=== PATIENT | male | born 1980 | race African-American/Black ===

== ENCOUNTER 2017-08-27 23:50 | Emergency (ER) | payer BC ==
[2017-08-27 23:56] VITALS: BP 165/93; BMI 45.4
--- NOTE | 2017-08-28 00:25 | DR.GENAD ---
HPI - PCP Primary Care Physician: ashley - HPI Comment HPI Comment: HISTORY BELOW. - Complaint/Symptoms Chief Complaint Doctors Comments: COUGH TIMES 2 WEEKS TREATED OUT PATIENT. CONTINUE COUGHING AND FEELING SOB. TONIGHT WORSE. NOT TAKING MED CURRENTLY. NO FEVER. COUGH SLIGHTLY PRODUCTIVE, YELLOW SPUTUM. Chief Complaint:: non stop coughing for the last 2 weeks. seen given augmentin, steriod pack and nasal spray. taken all of meds, no better. - Nurses notes reviewed Nurses Notes Review: Yes - Source History Provided: Patient - Mode of Arrival Mode of Arrival: Ambulatory - Timing Onset of Chief Complaint: 08/13/17 Came on: Gradually - Duration Duration: Constant Duration: Weeks - Severity Severity: Moderate PMH - PMH Past Medical History: Yes Past Medical History: Hypertension, Kidney Stones Past Surgical History: Yes Surgical History: Ortho Surgery - Family History History of Family Medical Conditions: Yes Family Medical History: Hypertension - Social History Does patient currently use any type of tobacco product: No Have you used tobacco products in the last 12 months: No Type of Tobacco Use: None Alcohol Use: None Do you use any recreational Drugs:: No Lives With: Family Lives Where: Home - infectious screening Have you traveled outside the country in the last 6 months?: No Isolation: Standard ROS - Review of Systems Constitutional: No Symptoms Reported Eyes: No Symptoms Reported ENTM: No Symptoms Reported Respiratoy: Productive Cough, Short of Breath Cardiovascular: Edema Gastrointestinal/Abdominal: No Symptoms Reported Genitourinary: No Symptoms Reported Neurological: No Symptoms Reported Musculoskeletal: No Symptoms Reported Integumentary: No Symptoms Reported Hematologic/Lymphatic: No Symptoms Reported Endocrine: No Symptoms Reported All Other Systems: Reviewed and Negative PE - Vital Signs Vitals: Temperature 98.3 F Pulse Rate 91 Respiratory Rate 20 Blood Pressure [Left Arm] 189/96 Blood Pressure 165/93 O2 Sat by Pulse Oximetry 95 - General Limitations: No Limitations General Appearance: Alert - Head Head Exam: Normal Inspection - Eyes Eye exam: Normal Appearance - ENT ENT Exam: Normal External Ear Exam External Ear Exam: Normal External Inspection TM/Canal Exam: Bilateral Normal Mouth Exam: Normal Inspection - Neck Neck Exam: Trachea Midline - Chest Chest Inspection: Symmetric Chest Wall Rise - Respiratory Respiratory Exam: Normal Lung Sounds Bilat Respiratory Exam: Bilateral Clear to Auscultation - Cardiovascular Cardiovascular Exam: Regular Rate, Normal Rhythm, Normal Heart Sounds - Abdominal Exam Abdominal Exam: Normal Bowel Sounds, Soft. negative: Tenderness - Extremities Extremities Exam: Edema - Back Back Exam: Normal Inspection - Neurologic Neurological Exam: Alert, Oriented X3 - Psychiatric Psychiatric Exam: Normal Affect, Normal Mood - Skin Skin Exam: Normal Color MDM - Additional Information Additional Information Obtained From: Family - Differential Diagnosis Differential Diagnosis: COUGH, CHEST PAIN, SOB, PNEUMONIA, BRONCHITIS. Course - Treatment Treatment: SEE ORDERS. - Education/Counseling Education/Counseling: Patient, Family, Education Educated On: Diagnosis, Needs for Follow Up ROR - Labs Reviewed Laboratory Results Reviewed?: Yes Result Diagrams: 08/28/17 00:40 08/28/17 00:40 Laboratory: WBC 8.3 X10^3/uL (3.6-10.0) 08/28/17 00:40 RBC 5.53 X10^6/uL (4.7-6.0) 08/28/17 00:40 Hgb 13.8 g/dL (13.5-18.0) 08/28/17 00:40 Hct 41.8 % (42.0-54.0) L 08/28/17 00:40 MCV 75.5 fL (80.0-100.0) L 08/28/17 00:40 MCH 25.0 pg (27.0-34.0) L 08/28/17 00:40 MCHC 33.1 g/dL (33.0-35.0) 08/28/17 00:40 RDW 16.0 % (11.6-16.5) 08/28/17 00:40 Plt Count 306 X10^3/uL (150.0-450.0) 08/28/17 00:40 Plt Count Comment Adequate (ADEQUATE) 08/28/17 00:40 MPV 7.7 fL (7.4-11.0) 08/28/17 00:40 Neut % (Auto) 57.1 % (42.0-75.0) 08/28/17 00:40 Lymph % (Auto) 22.0 % (21.0-51.0) 08/28/17 00:40 [place] % (Auto) 16.1 % (0.0-13.0) H 08/28/17 00:40 Eos % (Auto) 3.9 % (0.9-2.9) H 08/28/17 00:40 Baso % (Auto) 0.9 % (0.2-1.0) 08/28/17 00:40 Neut # (Auto) 4.7 x10^3/uL (2.2-4.8) 08/28/17 00:40 Lymph # (Auto) 1.8 X10^3/uL (1.3-2.9) 08/28/17 00:40 [place] # (Auto) 1.3 x10^3/uL (0.3-0.8) H 08/28/17 00:40 Eos # (Auto) 0.3 x10^3/uL (0.0-0.2) H 08/28/17 00:40 Baso # (Auto) 0.1 X10^3/uL (0.0-0.1) 08/28/17 00:40 Absolute Nucleated RBC 0.0 /100WBC 08/28/17 00:40 Plt Morphology Comment Normal (NORMAL) 08/28/17 00:40 RBC Morphology Normal (NORMAL) 08/28/17 00:40 Sodium 136 mmol/L (136-145) 08/28/17 00:40 Corrected Sodium 136 mmol/L (136-145) 08/28/17 00:40 Potassium 4.2 mmol/L (3.5-5.1) 08/28/17 00:40 Chloride 102 mmol/L (98-107) 08/28/17 00:40 Carbon Dioxide 26.3 mmol/L (21-32) 08/28/17 00:40 BUN 20 mg/dL (7-18) H 08/28/17 00:40 Creatinine 1.24 mg/dL (0.70-1.30) 08/28/17 00:40 Est GFR (MDRD) Af Amer > 60 (>60) 08/28/17 00:40 Est GFR (MDRD) Non-Af > 60 (>60) 08/28/17 00:40 Glucose 111 mg/dL (65-99) H 18 00:40 Calcium 8.8 mg/dL (8.5-10.1) 041818 00:40 Corrected Calcium TNP 08/28/17 00:40 Total Bilirubin 0.20 mg/dL (0.2-1.0) 08/28/17 00:40 AST 19 Units/L (15-37) 08/28/17 00:40 ALT 28 Units/L (12-78) 08/28/17 00:40 Alkaline Phosphatase 116 Units/L (46-116) 08/28/17 00:40 Total Protein 9.1 g/dL (6.4-8.2) H 08/28/17 00:40 Albumin 3.7 g/dL (3.4-5.0) 08/28/17 00:40 Globulin 5.4 g/dL (2.5-4.5) H 08/28/17 00:40 Albumin/Globulin Ratio 0.7 Ratio (1.1-2.1) L 08/28/17 00:40 - XRAY XRAY Interpreted by: Radiologist (REPORT DISCUSS WITH PATIENT.) - Diagnosis Discharge Problem: Bronchitis - Discharge Plan Condition: Stable Prescriptions: Benzonatate [TESSALON PERLES *] 200 mg PO TID PRN #30 cap PRN Reason: Cough Ibuprofen [MOTRIN TAB 800 MG *] 800 mg PO Q8H PRN #30 tab PRN Reason: Pain/Inflammation - Follow ups/Referrals Follow ups/Referrals: NFD,None [Primary Care Provider] - 1 day - Instructions Instructions: Chronic Bronchitis Additional Instructions: RETURN TO ED IF WORSE.
--- NOTE | 2017-08-28 01:08 | RAD ---
Chest PA and lateral Indication: Cough Comparison: 05/06/2015 Findings: There is no pneumothorax or effusion. There is no consolidation. Heart size is within aida l limits. Impression: No acute chest process or change from the prior. Reported By:
[2017-08-28 01:31] LABS: HEMATOCRIT 41.8 % (42.0-54.0); HEMOGLOBIN 13.8 g/dL (13.5-18.0); MEAN CORPUSCULAR HGB CONC 33.1 g/dL (33.0-35.0); MEAN CORPUSCULAR VOLUME 75.5 fL (80.0-100.0); MEAN PLATELET VOLUME 7.7 fL (7.4-11.0); PLATELET COUNT 306 X10^3/uL (150.0-450.0); RED BLOOD COUNT 5.53 X10^6/uL (4.7-6.0); WHITE BLOOD COUNT 8.3 X10^3/uL (3.6-10.0)
[2017-08-28 01:32] LABS: BASOPHILS # (AUTO) 0.1 X10^3/uL (0.0-0.1); BASOPHILS % (AUTO) 0.9 % (0.2-1.0); EOSINOPHILS # (AUTO) 0.3 x10^3/uL (0.0-0.2); EOSINOPHILS % (AUTO) 3.9 % (0.9-2.9); LYMPHOCYTES # (AUTO) 1.8 X10^3/uL (1.3-2.9); MONOCYTES # (AUTO) 1.3 x10^3/uL (0.3-0.8); MONOCYTES % (AUTO) 16.1 % (0.0-13.0); NEUTROPHILS # (AUTO) 4.7 x10^3/uL (2.2-4.8); NEUTROPHILS % (AUTO) 57.1 % (42.0-75.0); PLATELET MORPHOLOGY COMMENT NORMAL (NORMAL)
[2017-08-28 01:34] LABS: ALANINE AMINOTRANSFERASE 28 Units/L (12-78); ALBUMIN 3.7 g/dL (3.4-5.0); ALKALINE PHOSPHATASE 116 Units/L (46-116); ASPARTATE AMINO TRANSFERASE 19 Units/L (15-37); BLOOD UREA NITROGEN 20 mg/dL (7-18); CALCIUM 8.8 mg/dL (8.5-10.1); CARBON DIOXIDE 26.3 mmol/L (21-32); CHLORIDE 102 mmol/L (98-107); COR NA(FOR HYPERGLY) 136 mmol/L (136-145); CREATININE 1.24 mg/dL (0.70-1.30); SODIUM 136 mmol/L (136-145); TOTAL PROTEIN 9.1 g/dL (6.4-8.2); eGFR BLACK RACES > 60 (>60); eGFR NON BLACK RACES > 60 (>60)
[2017-08-28] MEDS ORDERED: TORADOL TAB PO ONE ×2 (02:12→02:18)
[2017-08-28] MEDS ORDERED: TESSALON PERLES PO ONE (02:13)
== END 2017-08-28 02:25 | disposition home or self-care (01) ==
LOC: ER 23:50
DX: J40 Bronchitis, not specified as acute or chronic (principal)
CPT/HCPCS: 36415; 71046; 80053; 85025; 99283; 99284

== ENCOUNTER 2017-09-05 00:51 | Emergency (ER) | payer BC ==
[2017-09-05 00:56] VITALS: BMI 45.4
--- NOTE | 2017-09-05 01:54 | RAD ---
Chest, AP portable Indication: Cough Comparison: 08/28/2017 Findings: Cardiac silhouette is unremarkable. The lungs are clear without focal infiltrate or pleural effusion. Impression: No acute chest process. Reported By:
--- NOTE | 2017-09-05 02:10 | DR.GENAD ---
HPI - PCP Primary Care Physician: NFD - Complaint/Symptoms Chief Complaint Doctors Comments: Patient has been treated with the diagnosis of chronic bronchitis. He has not stopped with the cough. He denies a history of asthma. Chief Complaint:: WENT TO OFFICE. GAVE ME ANTIBIOTICS AND COUGH MEDS. BEEN TO ER ALSO.STILL COUGHING. - Source History Provided: Patient - Mode of Arrival Mode of Arrival: Ambulatory - Timing Onset of Chief Complaint: 08/15/17 PMH - PMH Past Medical History: No Past Medical History: Hypertension, Kidney Stones Past Surgical History: Yes Surgical History: Ortho Surgery - Family History History of Family Medical Conditions: Yes Family Medical History: Hypertension - Social History Does any household member use tobacco: Yes Alcohol Use: None Do you use any recreational Drugs:: No Lives With: Family Lives Where: Home - infectious screening In the last 2 months have you had wt loss of >10#?: NO Have you had fever, night sweats or hemotysis?: No Have you traveled outside the country in the last 6 months?: No Isolation: Standard ROS - Review of Systems Eyes: No Symptoms Reported ENTM: No Symptoms Reported Respiratoy: No Symptoms Reported Cardiovascular: No Symptoms Reported Gastrointestinal/Abdominal: No Symptoms Reported Genitourinary: No Symptoms Reported Neurological: No Symptoms Reported Musculoskeletal: No Symptoms Reported Integumentary: No Symptoms Reported Hematologic/Lymphatic: No Symptoms Reported Endocrine: No Symptoms Reported Psychiatric: No Symptoms Reported All Other Systems: Reviewed and Negative PE - Vital Signs Vitals: Temperature 98 F Pulse Rate [] 79 Pulse Rate 113 Respiratory Rate 20 Blood Pressure [Left Arm] 141/94 Blood Pressure 191/96 O2 Sat by Pulse Oximetry 98 - General Limitations: No Limitations General Appearance: Alert, In No Apparent Distress - Head Head Exam: Normal Inspection, Atraumatic - Eyes Eye exam: Normal Appearance, PERRL, EOMI - ENT ENT Exam: Normal Exam External Ear Exam: Normal External Inspection TM/Canal Exam: Bilateral Normal Nose Exam: Normal Nose Exam Mouth Exam: Normal Inspection Throat Exam: Normal Inspection - Neck Neck Exam: Normal Inspection - Chest Chest Inspection: Normal Inspection - Respiratory Respiratory Exam: Normal Lung Sounds Bilat Respiratory Exam: Bilateral Clear to Auscultation - Cardiovascular Cardiovascular Exam: Regular Rate, Normal Rhythm - Abdominal Exam Abdominal Exam: Normal Inspection, Normal Bowel Sounds Abdominal Tenderness: negative: RUQ, RLQ, LUQ, LLQ, Epigastrium, Suprapubic, Diffuse, Mild, Moderate, Severe, Other - Extremities Extremities Exam: Normal Inspection - Back Back Exam: Normal Inspection, Full ROM - Neurologic Neurological Exam: Alert, Oriented X3, CN II-XII Intact - Psychiatric Psychiatric Exam: Normal Affect - Skin Skin Exam: Warm, Dry, Normal Color - Diagnosis Discharge Problem: Cough variant asthma - Discharge Plan Condition: Stable - Follow ups/Referrals Follow ups/Referrals: NFD,None [Primary Care Provider] - 3 days - Instructions
[2017-09-05] MEDS ORDERED: DECADRON JET NEB (RESP USE) NEB ONE ×2 (02:14→02:17)
[2017-09-05] MEDS ORDERED: DUONEB 0.5 MG/3 MG ONE (02:17)
[2017-09-05] MEDS ORDERED: DUONEB 0.5 MG/3 MG NEB ONE (02:22)
[2017-09-05] MEDS ORDERED: TUSSIONEX PENNKINETIC SUSP PO ONE (02:25)
[2017-09-05] MEDS ORDERED: TUSSIONEX PENNKINETIC SUSP ONE (02:28)
[2017-09-05 02:41] VITALS: BP 138/82
[2017-09-05] MEDS ORDERED: DUONEB 0.5 MG/3 MG NEB SCH (09:00)
== END 2017-09-05 02:40 | disposition home or self-care (01) ==
LOC: ER 00:51
DX: J45.991 Cough variant asthma (principal)
CPT/HCPCS: 71045; 94640; 99282; J7620